=== PATIENT | male | born 1955 | race Caucasian/White ===

== ENCOUNTER → 2018-10-06 09:56 | Outpatient (CLI) | payer BC, SELFPAY ==
--- NOTE | 2018-10-06 | DI.US.S_ITS ---
PROCEDURE: US ABD AORTA ANEURYSM SCREEN INDICATIONS: AAA SCREEN TECHNIQUE: Real time scanning was performed of the aorta and iliac arteries, with image documentation. COMPARISON: None. FINDINGS: Aorta: Proximal aortic diameter measures 2 cm. Mid-aorta measures 1.8 cm. Distal aortic diameter is 1.8 cm. Iliac arteries: Right common iliac artery measures 1.2 cm. Left common iliac artery measures 1.2 cm. IMPRESSION: Negative for abdominal aortic aneurysm. Dictated by: Chilo Pena M.D. on 10/06/2018 at 9:24 Approved by: Chilo Pena M.D. on 10/06/2018 at 9:25
== END ==
PROVIDERS: Visit Provider Nurse Practitioner Family
DX: Z13.6 Encounter for screening for cardiovascular disorders (principal)
CPT/HCPCS: 76706

== ENCOUNTER → 2019-06-26 10:32 | Outpatient (CLI) | payer SELFPAY ==
--- NOTE | 2019-06-26 | DI.US.S_ITS ---
PROCEDURE: US ABDOMEN LIMITED INDICATIONS: HERNIA TECHNIQUE: Real-time focused scanning was performed of the abdomen, with image documentation. Valsalva maneuver was performed. COMPARISON: None. FINDINGS: Focused ultrasound scanning was performed at the site of the prior hernia repair. At this site, there is an apparent fat containing hernia seen, with contents observed moving inferior to the mesh and medial to the iliac vessels. IMPRESSION: Recurrent fat-containing hernia seen inferior to the mesh and medial to the vessels. If it would be helpful for presurgical decision making, please consider a dedicated CT study for further evaluation. Dictated by: Chilo Pena M.D. on 06/26/2019 at 11:14 Approved by: Chilo Pena M.D. on 06/26/2019 at 11:16
== END ==
PROVIDERS: Visit Provider Nurse Practitioner Family
DX: K46.9 Unspecified abdominal hernia without obstruction or gangrene (principal)
CPT/HCPCS: 76705

== ENCOUNTER → 2020-06-20 10:09 | Outpatient (CLI) | payer MEDICARE, OTHER, SELFPAY ==
[2020-06-21 20:33] LABS: COVID19 Sendout Not Detected (Not Detect)
== END ==
PROVIDERS: PCP Nurse Practitioner Family; Visit Provider Physician Assistant
DX: Z01.812 Encounter for preprocedural laboratory examination (principal)
CPT/HCPCS: 87635

== ENCOUNTER → 2020-06-23 07:32 | Outpatient (CLI) | payer MEDICARE, OTHER, SELFPAY ==
--- NOTE | 2020-06-23 12:01 | PM.TREADMILL ---
Cardiac Stress Test Report Referral & Results Date Patient Seen: 06/23/20 Time Patient Seen: 09:00 Requesting provider: Robina Fuentes Indication: syncope Rest ECG: sr Procedure Note: 1. Standard sandra protocol 8:59, METs 10.1. 2. good exercise capacity , WILLA -16%. 3. Normal hemodynamic response to exercise. 4. No chest pain prior, during or after exercise, no anginal symptoms 5. resting ECG SR, at peak exercise ST depression in leads V4-6. PVCs throughout. Impression: A cardiology consult would be appropriate. Please note: Actual ECG tracings can be found in the PACS system.
== END ==
PROVIDERS: PCP Internal Medicine; Referring Provider Internal Medicine; Visit Provider Internal Medicine
DX: R55 Syncope and collapse (principal)
CPT/HCPCS: 93017

== ENCOUNTER → 2021-07-21 18:24 | Outpatient (CLI) | payer MEDICARE, OTHER, SELFPAY ==
[2021-07-21 18:54] LABS: COVID19 -Nasal RAPID POSITIVE (Negative)
== END ==
PROVIDERS: PCP Internal Medicine; Visit Provider Nurse Practitioner
DX: U07.1 COVID-19 (principal)
CPT/HCPCS: 87635

== ENCOUNTER → 2021-07-29 12:50 | Outpatient (CLI) | payer MEDICARE, OTHER, SELFPAY ==
--- NOTE | 2021-07-29 12:52 | DI.RAD.S_ITS ---
PROCEDURE: XR CHEST 2V INDICATIONS: cough TECHNIQUE: 2 views of the chest were acquired. COMPARISON: None. FINDINGS: Surgical changes and devices: None. Lungs and pleura: There is a likely calcified granuloma seen involving the superior medial right lung. An incomplete inspiratory result is noted, causing a crowded appearance to the lung markings. No focal infiltrates are seen. No pneumothorax or significant pleural effusions are seen. Mediastinum: Mediastinal contours are normal. Heart size is normal. Bones and chest wall: No suspicious bony abnormalities. Degenerative changes are seen throughout, particularly involving the acromioclavicular joints. Soft tissues appear unremarkable. IMPRESSION: Low lung volumes. No focal infiltrates. Dictated by: Chilo Pena M.D. on 07/29/2021 at 12:01 Approved by: Chilo Pena M.D. on 07/29/2021 at 12:03
== END ==
PROVIDERS: PCP Internal Medicine; Referring Provider Nurse Practitioner Family; Visit Provider Nurse Practitioner Family
DX: R05 Cough (principal)
CPT/HCPCS: 71046

== ENCOUNTER → 2022-11-14 11:39 | Outpatient (ROUT) | payer MEDICARE, OTHER, SELFPAY ==
[2022-11-14 12:09] LABS: INR 1.1 (0.9-1.3); Prothrombin Time 12.4 SECONDS (10.1-12.7)
== END ==
PROVIDERS: PCP Internal Medicine; Visit Provider Internal Medicine
DX: Z13.0 Encounter for screening for diseases of the blood and blood-forming organs and certain disorders involving the immune mechanism (principal); Z01.812 Encounter for preprocedural laboratory examination; K44.9 Diaphragmatic hernia without obstruction or gangrene
CPT/HCPCS: 85610

== ENCOUNTER 2023-02-08 06:40 | Day surgery (SDC) | payer MEDICARE, OTHER, SELFPAY ==
--- NOTE | 2023-02-08 | PATH_ITS ---
[facility] Accession Number: [id number] No. of containers..01 Tissue . 01 Material submitted: . colon - SIGMOID POLYP . 01 Diagnosis: Sigmoid Colon, Polyp, Biopsy: Hyperplastic polyp. JNL 02/12/2023 1720 Local . 01 Electronically signed: . Tamara Mancini MD, Pathologist NPI- [id number] . 01 Gross description: . SIGMOID POLYP: Received in formalin are 2 fragment(s) of hammond, soft tissue measuring 0.3 x 0.2 x 0.1 cm to 0.2 x 0.1 x 0.1 cm submitted entirely in 1 cassette(s) /CPE 02/09/2023 1107 Local . 01 Pathologist provided ICD-10: K63.5 . 01 CPT . 870272 Specimen Comment: A courtesy copy of this report has been sent to [facility]ology Performed at: 01 [facility] [address] [place] [address], [place], [place] [id number] MD Vasiliy Tejada MD Phone: [phone]
[2023-02-08 06:59] VITALS: BMI 26.5
[2023-02-08 07:03] VITALS: BP 118/78; PULSE 87; RESP 16; TEMP 36.6; O2SAT 95
[2023-02-08] MEDS: LACTATED RINGERS 1,000 ML 42 ML IV (07:13)
--- NOTE | 2023-02-08 07:43 | PM.HP.1 ---
History of Present Illness History of Present Illness Chief complaint: Colonoscopy Narrative: Mr. Foote is a 67-year-old male who presents today for screening colonoscopy. He believes his last colonoscopy was about 5 years ago. He does not recall having had any polyps on that colonoscopy but he has had polyps in the past. He is had about 3 colonoscopies total. He has no family history of colon cancer and no alarming symptoms. Patient History Medical History Cough Hypercholesterolemia Surgical History History of ankle surgery History of Aidan fundoplication Hx of hernia repair Hx of knee surgery Hx of shoulder surgery Family & Social History Family History Mother Heart disease Social History: household members spouse Tobacco & Substance use: Smoking Status Never smoker alcohol intake never Substance Use Type does not use Meds Home Medications and Allergies Home Medications Medication Instructions Recorded Confirmed Type albuterol sulfate 90 mcg/actuation 2 puff inhalation Q4-6H PRN 07/21/21 02/08/23 Rx aerosol inhaler shortness of breath or wheezing #8.5 grams inhalational spacing device #1 ea 07/21/21 01/14/22 Rx (Aerovent Plus spacer) peg 3350-electrolytes 236 240 ml PO Q10M #4,000 mL 01/07/23 02/08/23 Rx gram-22.74 gram-6.74 gram-5.86 gram solution (Golytely) losartan 50 mg tablet 50 mg PO DAILY 02/08/23 02/08/23 History rosuvastatin 40 mg tablet 40 mg PO DAILY 02/08/23 02/08/23 History Allergies Allergy/AdvReac Type Severity Reaction Status Date / Time No Known Drug Allergies Allergy Verified 02/08/23 06:57 Exam Vital Signs (past 8 hours): - 02/08/23 07:03 Temperature 97.8 F Pulse Rate 87 Respiratory Rate 16 Blood Pressure 118/78 Pulse Oximetry 95 Oxygen Delivery Method Room Air Oxygen Delivery Method Room Air Const General: cooperative, healthy appearing and comfortable HENMT Head: normal to inspection Resp Effort & Inspection: normal respiratory effort and able to speak in complete sentences Cardio Pulses: radial pulses present GI Palpation: soft and No tender Assessment & Plan Assessment and plan (1) Colon cancer screening: Status: Acute (2) History of colon polyps: Status: Acute Plan I discussed the risks benefits and alternatives of a colonoscopy today with Mr. Foote. He understands the risks including but not limited to perforation of the colon and an incomplete exam he would like to proceed. Time Spent With Patient Critical Care time: I spent a total of [] minutes of critical care time on this patient's care today; this time is exclusive of procedural time.
[2023-02-08 08:37] VITALS: BP 81/53; BP 93/60; PULSE 72; PULSE 77; RESP 11; TEMP 36.4; O2SAT 94; O2SAT 95
--- NOTE | 2023-02-08 08:37 | P.OP.COLON_ITS ---
Operative Date/Time/Diagnoses Date of procedure: 02/08/23 Time of procedure: 08:37 Pre-op diagnosis: Screening colonoscopy, history of polyps Post-op diagnosis: same Procedure & Clinicians Study performed: Colonoscopy and biopsy Same procedure as scheduled: Yes Surgeon: Erika Reynaga Procedure Notes Procedure in detail: Patient was taken to the endoscopy suite and placed in left lateral decubitus position. A time-out was performed. With the help of anesthesiologist conscious sedation was induced. Digital rectal exam revealed no masses or strictures. The colonoscope was advanced into the anal canal and through the colon. Photograph was obtained of the appendiceal orifice. The prep was good [place] bowel prep score of 2. The scope was then withdrawn withdrawal time was 15 minutes. There was 1 polyp that was very small and biopsied and removed with the forceps located in the sigmoid colon. Throughout the sigmoid colon there were some scattered diverticula this is within normal limits and not an uncommon finding which does not necessarily have any pathologic significance. The scope was retroflexed and the hemorrhoidal piles were seen a photograph was taken. Patient tolerated the procedure well and went in good condition to postoperative care unit Findings: divertiulosis and polyp(s) Specimen(s): other (1. Sigmoid polyp) Complications: none Post-procedure Recommendations: Colonoscopy in 5 years Plan for aftercare: Follow up will be in 5-10 years. With history of polyps a 5 year cycle is arti frey.
[2023-02-08 08:42] VITALS: BP 110/70; PULSE 70; RESP 66; O2SAT 96
[2023-02-08 08:48] VITALS: BP 104/64; PULSE 81; RESP 13
[2023-02-08 09:08] VITALS: BP 114/72; PULSE 60; RESP 14; TEMP 37.2; O2SAT 97
[2023-02-08 09:37] VITALS: BP 130/79; PULSE 59; RESP 16; TEMP 36.4; O2SAT 96
== END 2023-02-08 09:51 | disposition home or self-care (01) ==
PROVIDERS: PCP Internal Medicine; Referring Provider Surgery; Visit Provider Surgery
PROC: 0DJD8ZZ Inspection of Lower Intestinal Tract, Via Natural or Artificial Opening Endoscopic (ICD-10-PCS; CPT 45378; principal; 2023-02-08 07:45)
DX: Z12.11 Encounter for screening for malignant neoplasm of colon (principal); Z86.010 Personal history of colon polyps; K64.4 Residual hemorrhoidal skin tags; K57.30 Diverticulosis of large intestine without perforation or abscess without bleeding; K63.5 Polyp of colon
CPT/HCPCS: 45380; J2250; J2704; J3010

== ENCOUNTER → 2024-04-28 13:57 | Outpatient (CLI) | payer MEDICARE, OTHER, SELFPAY | LOC: RESP 13:58 | PROVIDERS: PCP Internal Medicine; Referring Provider Internal Medicine; Visit Provider Internal Medicine | DX: R05.3 Chronic cough (principal); R94.2 Abnormal results of pulmonary function studies | CPT/HCPCS: 94060; 94726; 94729 ==

== ENCOUNTER → 2024-04-29 09:15 | Outpatient (CLI) | payer MEDICARE, OTHER, SELFPAY ==
--- NOTE | 2024-04-29 09:21 | DI.CT.S_ITS ---
PROCEDURE: CT CHEST W CON INDICATIONS: Abnormalities of breathing TECHNIQUE: After the administration of intravenous contrast, 5 mm thick sections acquired from the pulmonary apices to the posterior costophrenic angles. 1 mm axial lung, 5 mm thick coronal and sagittal reformats and 7 mm axial MIP were acquired. For radiation dose reduction, the following was used: automated exposure control, adjustment of mA and/or kV according to patient size. COMPARISON: None. FINDINGS: Image quality: Diagnostic. Lower Neck: No enlarged lymph nodes. Thyroid: No thyroid nodules which require sonographic follow up, per consensus guidelines. Axillae: No enlarged lymph nodes. Chest Wall: Unremarkable. Bones: No suspicious osseous lesion. Lungs and Pleura: No pneumothorax or pleural effusions. No consolidation. Minimal streaky opacity in the right lower lobe. No mass or significant pulmonary nodules. Airways are clear. Heart: Heart size is normal. Three-vessel coronary artery calcifications. No pericardial effusion. Thoracic Vessels: The aorta and pulmonary arteries demonstrate normal size. Mediastinum and Lory: No enlarged lymph nodes. Esophagus: No wall thickening. Postoperative changes at the gastroesophageal junction. No hiatal hernia. Upper Abdomen: Visualized upper abdomen solid organs and bowel loops appear normal. IMPRESSION: 1. No significant acute airspace opacity. No pleural effusion. 2. No mass or significant pulmonary nodules. No adenopathy. 3. Three-vessel coronary artery calcifications. Dictated by: Romaine Gallo M.D. on 04/29/2024 at 10:38 Approved by: Romaine Gallo M.D. on 04/29/2024 at 10:45
== END ==
PROVIDERS: PCP Internal Medicine; Referring Provider Internal Medicine; Visit Provider Internal Medicine
DX: R06.09 Other forms of dyspnea (principal); R05.3 Chronic cough; D64.9 Anemia, unspecified; I25.10 Atherosclerotic heart disease of native coronary artery without angina pectoris
CPT/HCPCS: 71260; Q9967

== ENCOUNTER → 2024-06-17 18:12 | Outpatient (CLI) | payer MEDICARE, OTHER, SELFPAY ==
--- NOTE | 2024-06-17 18:13 | DI.MRI.S_ITS ---
PROCEDURE: MR SHOULDER LT WO CON INDICATIONS: PAIN IN LEFT SHOULDER JOINT TECHNIQUE: Noncontrast oblique coronal T2 fast spin echo with fat saturation, oblique sagittal T1 spin echo and T2 fast spin echo with fat saturation, axial T1 spin echo and T2 fast spin echo with fat saturation through the shoulder. COMPARISON: [facility], CR, XR SHOULDER 2+ VIEWS LEFT, 06/15/2024, 13:19. FINDINGS: Image quality: Excellent. Rotator cuff: There is high-grade partial bursal sided tearing of the supraspinatus tendon at the distal insertion measuring 6 mm in anterior-posterior dimension. Low-grade partial intrasubstance tearing of the infraspinatus tendon at the distal insertion. Moderate supraspinatus and infraspinatus tendinosis. Teres minor tendon is intact. Moderate subscapularis tendinosis and low-grade partial tearing at the superior insertion. Rotator cuff musculature is normal in bulk. Bones and bursae: No acute trabecular bone injury or fracture. Chronic traction cystic changes are seen at the posterior superior humeral head. High-grade cartilage loss is seen in the central posterior glenoid with marginal osteophyte formation. Moderate degenerative changes are seen at the acromioclavicular joint with subchondral edema and marginal osteophyte formation. Trace fluid is seen in the subacromial/subdeltoid bursa. No significant glenohumeral effusion. Capsule and soft tissues: Chronic nondisplaced tearing of posterior superior labrum. Eiqm-[id number] proximal biceps long head tendinosis. Partial effacement of the fat signal in the rotator interval. Glenohumeral ligaments appear intact. IMPRESSION: 1. High-grade partial bursal sided tearing of the supraspinatus tendon at the distal insertion measuring 6 mm in anterior-posterior dimension superimposed on moderate tendinosis. 2. Small foci of low-grade partial intrasubstance tearing are seen at the distal infraspinatus and subscapularis tendons superimposed on chronic tendinosis. 3. Uvfx-hz-mfqewrvb proximal biceps long head tendinosis. 4. Chronic nondisplaced tearing of the posterior superior labrum. 5. Grade 3-4 chondromalacia in the glenohumeral joint. 6. Moderate acromioclavicular joint osteoarthrosis. Approved by: Bright Jorgensen M.D. on 06/18/2024 at 15:00
== END ==
PROVIDERS: PCP Internal Medicine; Referring Provider Orthopaedic Surgery; Visit Provider Orthopaedic Surgery
DX: M75.112 Incomplete rotator cuff tear or rupture of left shoulder, not specified as traumatic (principal); M19.012 Primary osteoarthritis, left shoulder; M94.212 Chondromalacia, left shoulder; S43.492A Other sprain of left shoulder joint, initial encounter; M25.512 Pain in left shoulder
CPT/HCPCS: 73221

== ENCOUNTER → 2024-07-09 06:51 | Outpatient (CLI) | payer MEDICARE, OTHER, SELFPAY ==
--- NOTE | 2024-07-09 06:53 | DI.CT.S_ITS ---
PROCEDURE: CT UE LT WO CON INDICATIONS: INCOMPLETE ROTATOR CUFF TEAR/RUPTURE LEFT SHOULDER TECHNIQUE: Noncontrast 0.75 mm thick sections acquired from the acromioclavicular joint to the inferior scapula, with coronal and sagittal reformatting. COMPARISON: None. FINDINGS: Image quality: Excellent. Bones: Mild degenerative changes of the acromioclavicular joint. Multiple ossification about the acromioclavicular joint, representing prior injury. Chondrocalcinosis of the glenohumeral joint, representing CPPD arthropathy. Mild degenerative changes of the glenohumeral joint. No glenoid retroversion. No acute fracture or dislocation of the left shoulder. Multifocal subchondral cystic changes at the greater tuberosity, reactive. Visualized vertebral body heights are well maintained. Left ribs are unremarkable. Soft tissues: Visualized left lung is unremarkable. Mild calcification of the aortic arch. Severe LAD and left circumflex coronary artery calcification, partially visualized. No left axillary lymphadenopathy. No significant fatty atrophy of the rotator cuff musculature. IMPRESSION: 1. Mild degenerative change of the acromioclavicular and the glenohumeral joint. No glenoid retroversion. 2. CPPD arthropathy of the glenohumeral joint. Dictated by: Tennille Ornelas M.D. on 07/10/2024 at 14:24 Approved by: Tennille Ornelas M.D. on 07/10/2024 at 14:29
== END ==
LOC: CT 06:52
PROVIDERS: PCP Internal Medicine; Referring Provider Orthopaedic Surgery; Visit Provider Orthopaedic Surgery
DX: M75.112 Incomplete rotator cuff tear or rupture of left shoulder, not specified as traumatic (principal); M11.812 Other specified crystal arthropathies, left shoulder
CPT/HCPCS: 73200

== ENCOUNTER → 2024-12-15 09:45 | Outpatient (CLI) | payer MEDICARE, OTHER, SELFPAY ==
--- NOTE | 2024-12-15 09:48 | DI.NM.S_ITS ---
PROCEDURE: NM ROSALIE PERF SPECT REST & STR Rest and exercise myocardial perfusion SPECT with gated imaging and ejection fraction RADIOPHARMACEUTICAL: 12.2 mCi Tc-99m sestamibi IV at rest and 26.5 mCi Tc-99m sestamibi IV at peak exercise. A one day-protocol was performed. INDICATIONS: SHORTNESS OF BREATH TECHNIQUE: Radiopharmaceutical was injected at peak stress test, and also at rest. SPECT images were obtained. SPECT myocardial perfusion images were displayed in short axis, horizontal long axis, and vertical long axis views. Gated images were reviewed using [employer] software. COMPARISON: None. CARDIAC STRESS: A standard Buzz treadmill exercise tolerance test was performed by the patient under the supervision of an attending staff. The patient exercised for 6 minutes and 42 seconds; functional aerobic impairment (WILLA) is +3%. Hemodynamic data: There is normal blood pressure and heart rate response to exercise stress. Patient achieved 103% of maximum predicted heart rate at peak exercise. Symptoms: Patient denied chest pain during exercise. EKG: No diagnostic EKG changes of ischemia; rare PVCs present. FINDINGS: Raw data: There is good myocardial labeling by radiotracer. No significant motion artifacts. Dpfm-qs-swztv ratio is 0.37 (normal is less than 0.38 for sestamibi tracer, and less than 0.50 for thallium tracer). Left ventricle function: Gated images demonstrate normal left ventricle wall thickening. No segmental wall motion abnormality. No transient ischemic dilation; TID is 0.8 (normal less than 1.3). The left ventricle resting end-diastolic volume is 102 mL. Left ventricle stress ejection fraction is 72%; normal values are above 45%. Myocardial perfusion: There is a moderate intense fixed inferior wall defect that resolves with prone imaging, suggesting diaphragmatic attenuation artifact. No ischemia or infarction. IMPRESSION: Low risk, normal treadmill nuclear stress test from inducible ischemia standpoint. 1) There is a moderate intense fixed inferior wall defect that resolves with prone imaging, suggesting diaphragmatic attenuation artifact. No ischemia or infarction. 2) Normal left ventricular size, wall motion, and systolic function (EF post stress 72%). 3) No diagnostic ST changes during exercise or recovery. 4) No angina during the study. 5) Fair exercise tolerance (7.0METs, WILLA +3%). Target heart rate reached. Appropriate BP response to exercise. 6) No prior nuclear stress test available for comparison. Dictated by: Surekha Mathews MD on 12/16/2024 at 13:12 Approved by: Surekha Mathews MD on 12/16/2024 at 13:15
== END ==
PROVIDERS: PCP Family Medicine; Referring Provider Internal Medicine Cardiovascular Disease; Visit Provider Internal Medicine Cardiovascular Disease
DX: R06.02 Shortness of breath (principal)
CPT/HCPCS: 78452; 93017; A9502

== ENCOUNTER 2025-06-05 21:22 | Emergency (ER) | payer MEDICARE, OTHER, SELFPAY ==
[2025-06-05 21:24] VITALS: BP 166/85; PULSE 60; RESP 16; TEMP 36.7; O2SAT 98; BMI 26.9
--- NOTE | 2025-06-05 21:27 | DI.RAD.S_ITS ---
PROCEDURE: XR ANKLE RT MIN 3V INDICATIONS: fall, pain TECHNIQUE: 3 views of the ankle were acquired. COMPARISON: None. FINDINGS: Bones: 5th metatarsal base fracture.. Ankle mortise is normally aligned. No suspicious bony lesions. Soft tissues: No tibiotalar joint effusion. Achilles tendon appears normal. IMPRESSION: Fifth metatarsal base fracture. No other fractures are seen. Dictated by: Jack Knott M.D. on 06/05/2025 at 21:57 Approved by: Jack Knott M.D. on 06/05/2025 at 22:00
--- NOTE | 2025-06-05 21:27 | DI.RAD.S_ITS ---
PROCEDURE: XR FOOT RT MIN 3V INDICATIONS: fall, pain TECHNIQUE: 3 views of the foot were acquired. COMPARISON: None. FINDINGS: Bones: Mildly displaced and comminuted fracture of the base of the 5th metatarsal. Mild plantar calcaneal enthesophyte. Soft tissues: No tibiotalar joint effusion. Achilles tendon appears normal. IMPRESSION: Mildly displaced and comminuted fracture of the base of the 5th metatarsal. Dictated by: Jack Knott M.D. on 06/05/2025 at 21:52 Approved by: Jack Knott M.D. on 06/05/2025 at 21:53
--- NOTE | 2025-06-05 22:16 | ED.LOWEXIN ---
HPI - Extremity Injury (Lower) General Chief Complaint: Extremity Injury, Lower Stated Complaint: fell- hurt right foot Time Seen by Provider: 06/05/25 22:16 Source: patient Mode of arrival: Ambulatory History of Present Illness HPI Narrative: Patient is a 70-year-old male with past medical history of hypertension hyperlipidemia comes into the ED from home for evaluation of right foot pain, he states that this happened after fall states he was coming out of a shed wearing sneakers caught his foot on the paper and rolled his right ankle, states that he did not have any other injuries, denies any other symptoms at this time. Not on any blood thinners. Related Data Home Medications ?Medication ?Instructions ?Recorded ?Confirmed losartan 50 mg tablet 50 mg PO DAILY 02/08/23 02/08/23 rosuvastatin 40 mg tablet 40 mg PO DAILY 02/08/23 02/08/23 Previous Rx's ?Medication ?Instructions ?Recorded albuterol sulfate 90 mcg/actuation 2 puff inhalation Q4-6H PRN 07/21/21 aerosol inhaler shortness of breath or wheezing #8.5 grams inhalational spacing device #1 ea 07/21/21 (Aerovent Plus spacer) Allergies Allergy/AdvReac Type Severity Reaction Status Date / Time No Known Drug Allergies Allergy Verified 06/05/25 21:24 Review of Systems Review of Systems Narrative: General: Denies fever, chills, weight loss HEENT: Denies headache, eye drainage, eye irritation, head trauma, sore throat, voice change Cardiovascular: Denies any chest pain, palpitations, tachycardia Respiratory: Denies any shortness of breath, cough, wheeze, stridor GI/: Denies any abdominal pain, nausea, vomiting, diarrhea, bright red blood per rectum, melanotic stools, urinary frequency, urinary retention, dysuria, hematuria MSK: Positive right foot/ankle pain Skin: Denies any rashes, lesions, discoloration Neuro: Denies any headache, lightheadedness, dizziness, fainting, weakness Psych: Denies SI/HI Patient History Medical History Cough Hypercholesterolemia Surgical History History of ankle surgery History of Aidan fundoplication Hx of hernia repair Hx of knee surgery Hx of shoulder surgery Family History Mother Heart disease Social History marital status: household members: spouse occupational status: employed Smoking Status: Never smoker alcohol intake: never substance use type: does not use Smoking Status: Never smoker Exam Narrative Exam Narrative: General: Cooperative, well-developed, not in acute distress HEENT: Normocephalic, atraumatic, PERRLA, normal sclera, eyelids normal Neck: Active full range of motion, atraumatic Chest: Normal to inspection, negative crepitus, no overlying erythema ecchymosis Respiratory: Normal respiratory effort, not in acute respiratory distress, clear to auscultation bilaterally negative cough, wheeze, tachypnea, rhonchi, rales Cardiology: Regular rate rhythm negative gallop, murmur, rubs GI/: No tenderness to palpation, soft, non rigid, normal to inspection, exam deferred MSK: Full active range of motion in all 4 extremities, atraumatic, patient with tenderness to palpation of the base of the 5th metatarsal otherwise neurovascularly intact Skin: No rashes or lesions noted Neuro: Alert awake oriented x3, moves all 4 extremities spontaneously, cranial nerves intact, able to answer all questions appropriately follows commands appropriately Psych: Cooperative, negative suicidal or homicidal ideations Initial Vital Signs Initial Vital Signs: Vital Signs Temperature 98.1 F 06/05/25 21:24 Pulse Rate 60 06/05/25 21:24 Respiratory Rate 16 06/05/25 21:24 Blood Pressure 166/85 H 06/05/25 21:24 Pulse Oximetry 98 06/05/25 21:24 Oxygen Delivery Method Room Air 06/05/25 21:24 Course Orders Ordered: ED Orders 06/05/25 21:27 XR ankle RT min 3V Stat XR foot RT min 3V Stat Vital Signs Vital signs: Vital Signs - 8 hr 06/05/25 21:24 Temperature 98.1 F Pulse Rate 60 Respiratory Rate 16 Blood Pressure 166/85 H Pulse Oximetry 98 Oxygen Delivery Method Room Air MDM - Extremity Injury (Lower) Differential Diagnosis Differential diagnosis: Likely other (Strain, sprain, contusion, fracture) Imaging Data Extremity x-ray #1: Radiologist's Impression: [address] [address] XRay Report Signed Patient: Walter Foote MR#: [id number] : 1955 Acct:[id number] Age/Sex: 70 / M Date of Service: 06/05/25 Loc: ED Accession Number: [id number] Procedure: XR foot RT min 3V Ordering Provider: Madan Pool D.O. PROCEDURE: XR FOOT RT MIN 3V INDICATIONS: fall, pain TECHNIQUE: 3 views of the foot were acquired. COMPARISON: None. FINDINGS: Bones: Mildly displaced and comminuted fracture of the base of the 5th metatarsal. Mild plantar calcaneal enthesophyte. Soft tissues: No tibiotalar joint effusion. Achilles tendon appears normal. IMPRESSION: Mildly displaced and comminuted fracture of the base of the 5th metatarsal. Extremity x-ray #2: Radiologist's Impression: [address] [address] XRay Report Signed Patient: Walter Foote MR#: [id number] : 1955 Acct:[id number] Age/Sex: 70 / M Date of Service: 06/05/25 Loc: ED Accession Number: [id number] Procedure: XR ankle RT min 3V Ordering Provider: Madan Pool D.O. PROCEDURE: XR ANKLE RT MIN 3V INDICATIONS: fall, pain TECHNIQUE: 3 views of the ankle were acquired. COMPARISON: None. FINDINGS: Bones: 5th metatarsal base fracture.. Ankle mortise is normally aligned. No suspicious bony lesions. Soft tissues: No tibiotalar joint effusion. Achilles tendon appears normal. IMPRESSION: Fifth metatarsal base fracture. No other fractures are seen. MDM Narrative Medical decision making narrative: Patient is a 70-year-old male with a past medical history of hypertension hyperlipidemia coming into the ED from home for evaluation of right ankle pain, states that he rolled his ankle while stepping out of the shed denies head strike not on any blood thinners, patient with tenderness to palpation near the base of the 5th metatarsal, otherwise he is neurovascularly intact, patient was placed in a splint here, instructed to be nonweightbearing and to follow up with Podiatry or Orthopedic surgery in outpatient setting, he was given strict return precautions verbalized understanding of this and agrees to being discharged home with outpatient follow up Discharge Plan Departure Patient Disposition: Home Clinical Impression: Metatarsal fracture Instructions: How to Use Crutches, How to Take Care of Your Splint Activity Restrictions/Additional Instructions: Please be nonweightbearing to the foot, follow up with primary care and orthopedic surgery in outpatient setting Please read the discharge instructions sheet carefully and bring all papers to all doctor follow-up visits, as it may contain information that your doctor may want to see. Disease processes change and evolve, if your symptoms worsen or if you develop any new symptoms that are concerning to you please return for evaluation. Your evaluation today does not show any evidence of any life-threatening/serious illnesses requiring admission to the hospital or surgery. Please follow-up with your doctor for re-evaluation in approximately 1 day. Seek immediate medical attention for any worrisome symptoms. *If you do not have a primary care provider please contact the [facility] Resource line at [phone]. They will ask some questions about your medical history and help get you set up with a doctor in the community. Prescriptions: No Action albuterol sulfate 90 mcg/actuation HFA aerosol inhaler 2 puff inhalation Q4-6H PRN (Reason: shortness of breath or wheezing) Qty: 8.5 1RF (DME) Aerovent Plus Spacer See Rx Instructions .Route Qty: 1 0RF Rx Instructions: As directed losartan 50 mg tablet 50 mg PO DAILY Patient Comments: take 1 tablet by mouth once daily rosuvastatin 40 mg tablet 40 mg PO DAILY Patient Comments: take 1 tablet by mouth once daily Referrals: Raquel Durand MD [Primary Care Provider, Family Practice] Jose M Hernandez MD [Physician, Orthopedic Surgery] Stand Alone Forms: Patient Portal/API
[2025-06-05] MEDS: OXYCODONE/ACETAMINOPHEN 5/325 TABLET 1 TAB PO (22:52)
--- NOTE | 2025-06-05 23:20 | PC.NURSE ---
Pt declines crutches. States he has a set at home he can use. aware.
[2025-06-05 23:43] VITALS: BP 161/83; PULSE 59; RESP 16; O2SAT 96
== END 2025-06-05 23:46 | disposition home or self-care (01) ==
PROVIDERS: Emergency Provider Student in an Organized Health Care Education/Training Program; PCP Family Medicine
DX: S92.351A Displaced fracture of fifth metatarsal bone, right foot, initial encounter for closed fracture (principal); W18.30XA Fall on same level, unspecified, initial encounter
CPT/HCPCS: 73610; 73630; 99283